=== PATIENT | female | born 2005 | race African-American/Black ===

== ENCOUNTER 2023-07-25 02:43 | Emergency (ER) | payer MEDICAID ==
[~2023-07-25] VITALS: Ht 157.5 cm; Wt 45.0 kg
[2023-07-25 02:49] VITALS: BP 127/83; PULSE 96; RESP 16; TEMP 98.1; O2SAT 100
[2023-07-25 03:26] LABS: BASOPHILS % 0.3 % (0.0-2.0); EOSINOPHILS % 0.6 % (0.0-5.0); HEMATOCRIT. 32.8 % (36.0-48.0); HEMOGLOBIN. 11.1 g/dL (12.0-16.0); LYMPHOCYTES % 14.3 % (20.0-50.0); MEAN CORPUSCULAR HEMOGLOBIN 28.2 pg (28.0-32.0); MEAN CORPUSCULAR HGB CONC 33.9 g/dL (31.0-37.0); MEAN CORPUSCULAR VOLUME 83.3 fL (81.0-99.0); MONOCYTES % 5.7 % (2.0-8.0); NEUTROPHILS % 79.1 % (40.0-76.0); PLATELET 224 x1000/uL (130-400); RED BLOOD CELL COUNT 3.94 mill/uL (4.2-5.4); RED CELL DISTRIBUTION WIDTH 15.5 % (11.6-14.6); WHITE BLOOD COUNT 5.1 x1000/uL (4.5-11.0)
[2023-07-25] MEDS ORDERED: KETOROLAC 30MG/ML VIAL IM ONE (03:30)
[2023-07-25 03:35] LABS: CHLORIDE 111 mEq/L (98-107); INDEX HEMOLYSI 1 (1-3); INDEX ICTERIC 1 (1-4); INDEX LIPEMIC 1 (1-3); POTASSIUM 3.9 mEq/L (3.5-5.1); SODIUM 141 mEq/L (136-145)
[2023-07-25 03:42] LABS: ALANINE AMINOTRANSFERASE 13 IU/L (13-61); ALBUMIN 3.4 g/dL (3.4-5.0); ASPARTATE AMINOTRANSFERASE 9 IU/L (15-37); BILIRUBIN TOTAL 0.5 mg/dL (0.1-1.0); CALCIUM 8.6 mg/dL (8.5-10.1); CARBON DIOXIDE 29 mEq/L (21-32); CREATININE 0.9 mg/dL (0.6-1.3); GLUCOSE 107 mg/dL (70-105); PROTEIN TOTAL 7.1 g/dL (6.0-8.3); UREA NITROGEN BLOOD 15 mg/dL (7-21)
[2023-07-25 05:07] LABS: HCG SCREEN NEGATIVE
[2023-07-25 07:02] LABS: CLARITY URINE CLEAR (CLEAR); COLOR URINE YELLOW (YELLOW); GLUCOSE URINE NEGATIVE (NEGATIVE); KETONES URINE NEGATIVE (NEGATIVE); LEUKOCYTE ESTERASE URINE NEGATIVE (NEGATIVE); NITRITE URINE NEGATIVE (NEGATIVE); OCCULT BLOOD URINE 3+ (NEGATIVE); PROTEIN URINE NEGATIVE (NEGATIVE); SPECIFIC GRAVITY URINE 1.016 (1.005-1.030)
[2023-07-25] MEDS ORDERED: NAPR-681 MT (07:10)
[2023-07-25 08:48] LABS: SQUAMOUS EPITHELIAL CELL URINE FEW /lpf (RARE/1+)
[2023-07-25 08:49] LABS: BACTERIA URINE NONE SEEN; WBC URINE 0-2 /hpf (0-2)
== END 2023-07-25 07:22 | disposition home or self-care (01) ==
LOC: ER 02:43
DX: R10.2 Pelvic and perineal pain (principal)
CPT/HCPCS: 36415; 76830; 76856; 80053; 81003; 84703; 85025; 99284

== ENCOUNTER 2025-05-05 12:08 | Emergency (ER) | payer MEDICAID ==
[~2025-05-05] VITALS: Ht 157.5 cm; Wt 48.0 kg
[~2025-05-05 12:08] MED LIST: NAPR-681 MT
[2025-05-05 12:35] VITALS: TEMP 36.6; O2SAT 99
[2025-05-05] MEDS ORDERED: DIPHENHYDRAMINE 50MG CAPSULE PO ONE (16:00)
[2025-05-05] MEDS: DIPHENHYDRAMINE 25MG CAPSULE PO SCH (16:21)
[2025-05-05] MEDS: FLUORESCEIN SODIUM 1MG/STRIP BOTHEYE ONE ×2 (16:54)
[2025-05-05] MEDS: TETRACAINE 0.5% OPHTH DROPS 4ML BOTHEYE ONE (16:54)
[2025-05-05] MEDS ORDERED: POLY15DR17 EACHEYE (17:36)
[2025-05-05] MEDS ORDERED: NAPHADR EACHEYE (17:36)
[2025-05-05] MEDS ORDERED: IBUP-2029 MT (17:38)
[2025-05-05] MEDS ORDERED: DIPH25TA26 MT (17:41)
[2025-05-05 18:07] VITALS: BP 101/72; PULSE 89; RESP 12; O2SAT 100
== END 2025-05-05 18:09 | disposition home or self-care (01) ==
LOC: ER 12:08
DX: B30.8 Other viral conjunctivitis (principal); Z79.1 Long term (current) use of non-steroidal anti-inflammatories (NSAID)
CPT/HCPCS: 99283; Q0163